=== PATIENT | female | born 1960 | race Caucasian/White ===

== ENCOUNTER 2018-06-10 10:57 | Emergency (ER) | payer OTHER ==
[2018-06-10 11:04] VITALS: BP 157/103
[2018-06-10] MEDS ORDERED: Ondansetron ODT TAB* 4 MG PO ONE (11:08)
[2018-06-10] MEDS ORDERED: HYDROcodone/ACETAMIN 5-325 MG* 1 TAB PO ONE (11:26)
--- NOTE | 2018-06-10 11:30 | UC ---
Complaint Female HPI - HPI Summary HPI Summary: Patient has a history of kidney stones and follows with urology in [place] - Dr. Moralez. Last had US in February of this year and was advised she had no stones at that time. Left flank pain started this morning and has gotten progressively worse. Pain is so severe it makes her vomit. No urinary symptoms. No fever. - History Of Current Complaint Chief Complaint: UCBackPain Stated Complaint: BACK PAIN,VOMITING Time Seen by Provider: 06/10/18 10:59 Hx Obtained From: Patient Onset/Duration: Gradual Onset, Lasting Hours, Still Present Timing: Constant Severity Initially: Moderate Severity Currently: Severe Pain Intensity: 8 Pain Scale Used: 0-10 Numeric Character: Sharp Aggravating Factor(s): Nothing Alleviating Factor(s): Nothing Associated Signs And Symptoms: Positive: Back Pain. Negative: Fever, Nausea - Allergies/Home Medications Allergies/Adverse Reactions: Allergies Allergy/AdvReac Type Severity Reaction Status Date / Time iodine Allergy See Comment Verified 06/10/18 11:05 Home Medications: Home Medications Ibuprofen 800 mg PO 06/10/18 [History] PMH/Surg Hx/FS Hx/Imm Hx GI/ History: Kidney Stones - Surgical History Surgical History: Yes Surgery Procedure, Year, and Place: c section - Family History Known Family History: Positive: Hypertension - Social History Alcohol Use: None Substance Use Type: None Smoking Status (MU): Never Smoked Tobacco Review of Systems Constitutional: Negative Respiratory: Negative Cardiovascular: Negative Gastrointestinal: Abdominal Pain, Vomiting, Other - FLANK PAIN All Other Systems Reviewed And Are Negative: Yes Physical Exam Triage Information Reviewed: Yes Appearance: Well-Nourished, Pain Distress - SEVERE. IN TEARS, VOMITING Vital Signs: Initial Vital Signs Temp 98.6 F 06/10/18 11:00 Pulse 84 06/10/18 11:00 Resp 18 06/10/18 11:00 BP 157/103 06/10/18 11:00 Pulse Ox 96 06/10/18 11:00 Vital Signs Reviewed: Yes Eyes: Positive: Conjunctiva Clear ENT: Positive: Hearing grossly normal Neck: Positive: Supple Respiratory: Positive: No respiratory distress, No accessory muscle use Cardiovascular: Positive: Pulses Normal Abdomen Description: Positive: Nontender, Soft. Negative: CVA Tenderness (R), CVA Tenderness (L), Distended, Guarding Musculoskeletal: Positive: No Edema Neurological: Positive: Alert Psychological: Positive: Age Appropriate Behavior Skin: Negative: rashes Diagnostics - Radiology CT ABD/PELVIS W/O CONTRAST Xray Interpretation: Positive (See Comments) - 1. Nephrolithiasis with moderately severe LEFT hydronephrosis is traced to a 7 mm stone at the ureteropelvic junction. 2. Hepatosteatosis and cholelithiasis. Radiology Interpretation Completed By: Radiologist Re-Evaluation - Re-Evaluation First Eval Re-Evaluation Time: 12:15 - PAIN CONTINUES TO WORSEN DESPITE HYDROCODONE AND ZOFRAN. PT DID NOT TOLERATE MORPHINE - VOMITING. TO [facility] Change: Worse Complaint Female Dx - Differential Dx/Diagnosis Provider Diagnoses: LEFT SIDED KIDNEY STONES, HYDRONEPHROSIS - Physician Notifications Discussed Patient Care With: Armaan Jensen - TO [facility] Time Discussed With Above Provider: 12:25 Instructed by Provider To: MD Will See In ED Discharge - Sign-Out/Discharge Documenting (check all that apply): Patient Departure All imaging exams completed and their final reports reviewed: Yes - Discharge Plan Condition: Stable Disposition: TRANS HIGHER LVL OF CARE FAC Referrals: Vivian Meléndez MD [Primary Care Provider] - - Billing Disposition and Condition Condition: STABLE Disposition: Trans Higher Lvl of Care Fac
--- NOTE | 2018-06-10 12:00 | RAD ---
INDICATION: LEFT flank pain. Hematuria. History of nephrolithiasis. COMPARISON: No relevant prior exams available on the [facility] [place]. TECHNIQUE: Multidetector CT images were obtained from the lung bases to the ischial tuberosities. No oral contrast administered. Assessment of the visceral limited without IV contrast. Multiplanar reformation. REPORT: VISUALIZED INFERIOR THORAX: Mild LEFT greater than RIGHT basilar atelectasis. LIVER / GALLBLADDER / PANCREAS / SPLEEN: Decreased density of the liver consistent with fatty infiltration with focal sparing adjacent to the gallbladder fossa. Approximate 4 small sharply circumscribed water density cysts of the liver are noted without concern. Calcified stones within the gallbladder without additional CT abnormality of the gallbladder. Negative for biliary dilatation. Moderately atrophic pancreas without suspicious CT finding. Unremarkable spleen. ALIMENTARY TRACT: Negative for CT abnormality of the upper GI, small bowel, or retrocecal appendix. A few colonic diverticula are noted. No evidence for acute diverticulitis. Negative for ascites or free air. Small fat-containing umbilical hernia without inflammatory change. MESENTERIC: Unremarkable. ADRENAL / GENITOURINARY: Normal adrenal glands. 2 mm nonobstructing calyceal stone lower pole RIGHT kidney. Unremarkable nondilated RIGHT ureter. Moderately severe LEFT hydronephrosis is traced to a 7 mm stone at the ureteropelvic junction. Additional punctate stone at a LEFT upper pole calyx. Nondilated LEFT ureter without additional stones. Mild LEFT perinephric and peripelvic inflammatory stranding. Decompressed urinary bladder limiting assessment without gross abnormality. Unremarkable anteverted uterus and adnexal regions. RETROPERITONEAL: Negative for lymphadenopathy. VASCULAR: Normal diameter abdominal aorta with mild calcific plaque. Physiologic partial distention of the IVC. BONES: Negative for suspicious osseous lesions. SOFT TISSUE: Unremarkable. IMPRESSION: #. Nephrolithiasis with moderately severe LEFT hydronephrosis is traced to a 7 mm stone at the ureteropelvic junction. #. Hepatosteatosis and cholelithiasis.
[2018-06-10] MEDS ORDERED: Morphine VIAL* 10 MG/ML 1 ML VIAL IV ONE (12:11)
== END 2018-06-10 12:40 | disposition short-term general hospital (02) ==
LOC: UCEAST 10:57
DX: N13.2 Hydronephrosis with renal and ureteral calculous obstruction (principal); K80.20 Calculus of gallbladder without cholecystitis without obstruction; K76.0 Fatty (change of) liver, not elsewhere classified; Z87.442 Personal history of urinary calculi
CPT/HCPCS: 74176; 81003; 87086; 99213; A9270-GY; G0463; J2270

== ENCOUNTER 2018-06-10 12:50 | Day surgery (SDC) | payer OTHER ==
[2018-06-10] MEDS ORDERED: Morphine INJ* 4 MG/ML 1 ML SYRINGE (NEW SYRINGE VERSION) IV ONE (13:16)
[2018-06-10] MEDS ORDERED: Ondansetron INJ* 2 MG/ML VIAL IV ONE (13:16)
[2018-06-10] MEDS ORDERED: Ketorolac INJ* 30 MG/ML 1 ML VIAL IV PUSH ONE (13:16)
[2018-06-10] MEDS ORDERED: NS 0.9% 1000 ML* 1,000 ML IV ONE (13:19)
[2018-06-10 13:46] LABS: ABS Basophils 0 10^3/ul (0-0.2); ABS Eosinophils 0 10^3/ul (0-0.6); ABS Lymphocytes 0.7 10^3/ul (1.0-4.8); ABS Monocytes 0.4 10^3/ul (0-0.8); ABS Neutrophils 9.5 10^3/ul (1.5-7.7); ABS Nucleated RBC 0 10^3/ul; Eosinophil % 0.2 % (0-6); Hematocrit 42 % (35-47); Hemoglobin 14.1 g/dl (12.0-16.0); Lymphocyte % 6.9 % (25-47); Mean Corpuscular HGB Conc 34 g/dl (31-36); Mean Corpuscular Hemoglobin 31 pg (27-31); Mean Corpuscular Volume 91 fL (80-97); Mean Platelet Volume 8.1 um3 (7.4-10.4); Nucleated Red Blood Cells % 0; Platelet Count 223 10^3/ul (150-450); Red Cell Distribution Width 13 % (10.5-15); White Blood Count 10.7 10^3/ul (3.5-10.8)
[2018-06-10 14:00] LABS: EGFR Non-African American 52.3 (>60)
[2018-06-10] MEDS ORDERED: Lidocaine 2% PF * 5 ML VIAL ONE (14:49)
[2018-06-10] MEDS ORDERED: Propofol* 10 MG/ML 20 ML BTL IV PUSH ONE (14:49)
[2018-06-10] MEDS ORDERED: Midazolam* 1 MG/ML 2 ML VIAL (2 MG) ONE (14:49)
[2018-06-10] MEDS ORDERED: fentaNYL* 50 MCG/ML 2 ML VIAL (100 MCG VIAL) ONE (14:49)
[2018-06-10] MEDS ORDERED: Succinylcholine* 20 MG/ML 10 ML VIAL ONE (14:49)
[2018-06-10] MEDS ORDERED: Ondansetron INJ* 2 MG/ML VIAL ONE ×2 (14:56→17:13)
[2018-06-10] MEDS ORDERED: Dexamethasone IV* 4 MG/ML 1 ML (4 MG) ONE ×2 (14:56→17:13)
[2018-06-10] MEDS ORDERED: Buffered Lidocaine 0.9% SYRIN* 5 ML/SYR SYRINGE INTRADERM ONE (15:03)
--- NOTE | 2018-06-10 15:13 | ED ---
Back Pain - HPI Summary HPI Summary: Pt. is a 58-year-old female who was referred to the ER from [facility] for a obstructing left kidney stone. Patient has no past medical history other than kidney stones. She has seen urology in [place] in the past and has had stents and lithotripsy. Patient states she's been doing well over the last year until today when she developed acute pain to left flank. Associated symptoms of nausea and vomiting. Denies fever or chills. Patient had CAT scan done at [facility] that showed a 7 mm calculus at the UPJ with moderate to severe [place]. Symptoms are moderate in severity. No current modifying factors. - History of Current Complaint Chief Complaint: EDFlankPain Stated Complaint: FLANK PAIN Time Seen by Provider: 06/10/18 13:12 Hx Obtained From: Patient Pain Intensity: 6 - Allergies/Home Medications Allergies/Adverse Reactions: Allergies Allergy/AdvReac Type Severity Reaction Status Date / Time iodine Allergy See Comment Verified 06/10/18 11:05 Home Medications: Home Medications Ascorbic Acid TAB* [Vitamin C TAB*] 500 mg PO DAILY 06/10/18 [History Confirmed 06/10/18] [place]-3/Dha/Epa/Fish Oil [[place] 3 500 500 mg] 1 cap PO DAILY 06/10/18 [History Confirmed 06/10/18] PMH/Surg Hx/FS Hx/Imm Hx Previously Healthy: Yes - Cancer History Hx Chemotherapy: No Hx Radiation Therapy: No - Surgical History Surgery Procedure, Year, and Place: c section Infectious Disease History: No Infectious Disease History: Denies: History Other Infectious Disease, Traveled Outside the in Last 30 Days - Family History Known Family History: Positive: Hypertension - Social History Occupation: Employed Full-time Lives: With Family Alcohol Use: None Substance Use Type: Reports: None Smoking Status (MU): Never Smoked Tobacco Review of Systems Constitutional: Negative Negative: Fever, Chills Respiratory: Negative Gastrointestinal: Negative Positive: flank pain. Negative: hematuria All Other Systems Reviewed And Are Negative: Yes Physical Exam Triage Information Reviewed: Yes Vital Signs On Initial Exam: Initial Vitals Temp Pulse Resp BP Pulse Ox 98.3 F 74 17 152/78 97 06/10/18 12:56 06/10/18 12:56 06/10/18 12:56 06/10/18 12:56 06/10/18 12:56 Vital Signs Reviewed: Yes Appearance: Positive: Well-Appearing - Pt. sitting on bed in NAD. Skin: Positive: Warm, Dry Head/Face: Positive: Normal Head/Face Inspection Eyes: Positive: Normal, EOMI Neck: Positive: Supple Respiratory/Lung Sounds: Positive: Clear to Auscultation, Breath Sounds Present Cardiovascular: Positive: Normal, RRR Abdomen Description: Positive: Nontender, Soft, CVA Tenderness (L) Neurological: Positive: Normal, CN Intact II-III Psychiatric: Positive: Affect/Mood Appropriate Diagnostics - Vital Signs Vital Signs Temp Pulse Resp BP Pulse Ox 06/10/18 15:00 68 98 06/10/18 14:56 74 146/67 98 06/10/18 14:26 68 146/78 98 06/10/18 14:00 71 97 06/10/18 13:56 70 146/77 97 06/10/18 12:56 98.3 F 74 17 152/78 97 - Laboratory Lab Results: Lab Results 06/10/18 06/10/18 Range/Units 13:34 13:34 WBC 10.7 (3.5-10.8) 10^3/ul RBC 4.60 (4.00-5.40) 10^6/ul Hgb 14.1 (12.0-16.0) g/dl Hct 42 (35-47) % MCV 91 (80-97) fL MCH 31 (27-31) pg MCHC 34 (31-36) g/dl RDW 13 (10.5-15) % Plt Count 223 (150-450) 10^3/ul MPV 8.1 (7.4-10.4) um3 Neut % (Auto) 88.5 H (38-83) % Lymph % (Auto) 6.9 L (25-47) % Hardy % (Auto) 4.1 (0-7) % Eos % (Auto) 0.2 (0-6) % Baso % (Auto) 0.3 (0-2) % Absolute Neuts (auto) 9.5 H (1.5-7.7) 10^3/ul Absolute Lymphs (auto) 0.7 L (1.0-4.8) 10^3/ul Absolute Monos (auto) 0.4 (0-0.8) 10^3/ul Absolute Eos (auto) 0 (0-0.6) 10^3/ul Absolute Basos (auto) 0 (0-0.2) 10^3/ul Absolute Nucleated RBC 0 10^3/ul Nucleated RBC % 0 Sodium 139 (135-145) mmol/L Potassium 4.6 (3.5-5.0) mmol/L Chloride 105 (101-111) mmol/L Carbon Dioxide 28 (22-32) mmol/L Anion Gap 6 (2-11) mmol/L BUN 24 (6-24) mg/dL Creatinine 1.08 H (0.51-0.95) mg/dL Est GFR ( Amer) 63.3 (>60) Est GFR (Non-Af Amer) 52.3 (>60) BUN/Creatinine Ratio 22.2 H (8-20) Glucose 133 H (70-100) mg/dL Calcium 9.5 (8.6-10.3) mg/dL Total Bilirubin 0.40 (0.2-1.0) mg/dL AST 22 (13-39) U/L ALT 28 (7-52) U/L Alkaline Phosphatase 63 (34-104) U/L Total Protein 6.9 (6.4-8.9) g/dL Albumin 4.5 (3.2-5.2) g/dL Globulin 2.4 (2-4) g/dL Albumin/Globulin Ratio 1.9 (1-3) Result Diagrams: 06/10/18 13:34 06/10/18 13:34 Lab Statement: Any lab studies that have been ordered have been reviewed, and results considered in the medical decision making process. Back Pain Course/Dx - Course Course Of Treatment: Pt. presenting with severe left hydronephrosis secondary to a large proximal calculus. She is afebrile with stable vital signs. Labs ordered. I spoke with Dr. Anderson who generously agrees to place sent today. Pt. eventually transferred to preop. - Diagnoses Differential Diagnosis/HQI/PQRI: Positive: Renal Colic Provider Diagnoses: Hydronephrosis, Urolithiasis Discharge - Sign-Out/Discharge Documenting (check all that apply): Patient Departure - Discharge Plan Condition: Stable Disposition: ADMITTED TO [facility] Referrals: Vivian Meléndez MD [Primary Care Provider] - - Billing Disposition and Condition Condition: STABLE Disposition: Admitted to [facility]
[2018-06-10] MEDS ORDERED: cefTRIAXone(*) 2 GM ADDV.VIAL IVPB ONE (15:31)
[2018-06-10] MEDS ORDERED: Iohexol 180 (CONTRAST) 10 ML SDV IV ONE (15:51)
[2018-06-10] MEDS ORDERED: Gentamicin ADULT (*) 160 MG in NS 0.9% 100 ML* 100 ML IVPB ONE (16:00)
[2018-06-10] MEDS ORDERED: Buffered Lidocaine 0.9% SYRIN* 5 ML/SYR SYRINGE ONE (16:03)
[2018-06-10] MEDS ORDERED: Metoclopramide IV* 5 MG/ML 2 ML VIAL ONE (17:13)
--- NOTE | 2018-06-10 17:45 | RAD ---
CPT II Codes: G9500 INDICATION: Placement of left ureteral stent TECHNIQUE: Intraoperative fluoroscopy was provided during left ureteral stent placement. FINDINGS: 3 spot films depict retrograde pyelography demonstrating a mild degree of hydronephrosis followed by anatomic placement of a left ureteral stent. Fluoroscopy time: 8 seconds IMPRESSION: As above.
[2018-06-10] MEDS ORDERED: Levofloxacin TAB* 500 MG PO ONE (18:00)
[2018-06-10 18:59] VITALS: BP 144/71
--- NOTE | 2018-06-10 19:03 | HP ---
CC: Dr. Vivian Meléndez; Dr. Joseph.* ADMITTING HISTORY AND PHYSICAL: DATE OF ADMISSION: 06/10/18 ADMITTING DIAGNOSES: 1. Obstructing calculus, left ureteropelvic junction. 2. Left hydronephrosis. PLANNED PROCEDURE: Left ureteral stent insertion (to be followed in near future by shock wave lithotripsy). SURGEON: Dr. Joseph. HISTORY OF PRESENT ILLNESS: Anabelle Johns is a 58-year-old lady with a history of recurrent renal calculi. She had presented to the emergency room with left flank pain, nausea, and vomiting and was noted to have a 7 to 8 mm obstructing calculus at the left ureteropelvic junction. She was transferred from the [facility] to the emergency room because of the severity of the pain and is now being brought in for left stent insertion to be followed in the near future by lithotripsy. PAST MEDICAL HISTORY: Significant for renal calculi. PAST SURGICAL HISTORY: Significant for: 1. Left stent insertion and lithotripsy in 2017. 2. . 3. Laparoscopy for ovarian cyst. MEDICATIONS ON ADMISSION: None. ALLERGIES: No known drug allergies. SMOKING HISTORY: She is a nonsmoker. REVIEW OF SYSTEMS: She is otherwise in excellent health. There is no history of diabetes mellitus or any other major systemic illness. PHYSICAL EXAMINATION GENERAL: Reveals a pleasant, uncomfortable-appearing middle-aged lady. VITAL SIGNS: Blood pressure is 156/85, pulse 71 per minute, regular, oxygen saturation 97% on room air, respiratory rate 16 per minute, temperature 36.5. LUNGS: Clear bilaterally. CARDIOVASCULAR EXAM: Regular rate and rhythm. S1, S2. ABDOMEN: Soft with left flank tenderness. LABORATORY DATA: I have reviewed the labs, which reveals a white count of 10.7 , hemoglobin and hematocrit is 14.1 and 42 with a platelet count of 223. Review of electrolytes revealed sodium of 139, potassium of 4.6, BUN and creatinine are 24 and 1.08. Serum calcium is 9.5. Urinalysis is not available at the time of this dictation. IMAGING: I also reviewed the CT scan and had a detailed discussion with the patient. PLAN: Plan is for urgent left stent insertion (to be followed in near future by lithotripsy). [id number]/[facility] #: [id number] [facility]
[2018-06-10 19:41] LABS: Urine Appearance Cloudy; Urine Blood 3+ (Negative); Urine Color Yellow; Urine Ketones Negative (Negative); Urine Protein Negative (Negative); Urine Red Blood Cell 3+(>10/hpf) (Absent); Urine Specific Gravity 1.009 (1.010-1.030); Urine Urobilinogen Negative (Negative); Urine White Blood Cell 1+(6-10/hpf) (Absent)
--- NOTE | 2018-06-11 07:01 | OP ---
CC: Dr. Vivian Meléndez * DATE OF OPERATION: 06/10/18 - [facility] DATE OF : 62 SURGEON: Dr. Martin Joseph. ANESTHESIOLOGIST: Dr. Mancia. ANESTHESIA: General. PRE-OP DIAGNOSES: 1. Left hydronephrosis. 2. Obstructing calculus, left ureteropelvic junction. POST-OP DIAGNOSES: 1. Left hydronephrosis. 2. Obstructing calculus, left ureteropelvic junction. OPERATIVE PROCEDURE: Cystoscopy, left retrograde pyelogram, left ureteral calculus manipulation, and left stent insertion. COMPLICATIONS: None. STENT USED: A 7-Latvian stent, left ureter. POSTOPERATIVE CONDITION: Stable. INDICATIONS: Anabelle Tilley is a 58-year-old lady who was urgently evaluated for an obstructing left ureteropelvic junction calculus and is being brought in for urgent left stent insertion, to be followed in the near future by lithotripsy. DESCRIPTION OF PROCEDURE: After induction of general anesthesia, the patient was placed in dorsal lithotomy position. Sequential compression devices were in place and functioning. Initial cystoscopy revealed a normal-appearing bladder with mild chronic inflammatory changes noted, but there was no evidence of any suspicious bladder lesions noted. A guidewire was introduced into the left ureter. Retrograde pyelogram revealed fullness of the left collecting system and the radiopaque calculus could be noted at the ureteropelvic junction. This was carefully manipulated into a more proximal position, and a 7 -Latvian stent was then introduced and positioned under fluoroscopy with good proximal and distal positioning obtained. Bladder was emptied. The patient tolerated the procedure satisfactorily and was transferred back to recovery area in stable condition. [id number]/[facility] #: [id number] [facility]
--- NOTE | 2018-06-11 08:05 | RAD ---
Indication: Stent placement. Single view of the abdomen demonstrates left ureteral stent in place. Colon is filled with stool. No dilated loops of bowel are noted. IMPRESSION: Left ureteral stent is in place. R1
== END 2018-06-10 19:33 | disposition home or self-care (01) ==
LOC: ED 12:50 → UNDOADMIN 12:57 → MED 12:57 → OR 16:07
PROVIDERS: ATTEND Urology
DX: N13.2 Hydronephrosis with renal and ureteral calculous obstruction (principal); R10.32 Left lower quadrant pain; R39.89 Other symptoms and signs involving the genitourinary system; R11.2 Nausea with vomiting, unspecified
CPT/HCPCS: 36415; 74018; 74420; 80053; 81003; 81015; 85025; 87086; 96374; 96375; 99284; C1876; J0330; J0696; J1100; J1580; J1885; J2250; J2270; J2405; J2704; J2765; J3010

== ENCOUNTER 2018-06-20 10:31 | Day surgery (SDC) | payer OTHER ==
[~2018-06-20 10:31] MED LIST: Buffered Lidocaine 0.9% SYRIN* 5 ML/SYR SYRINGE INTRADERM ONE; Sodium Citrate/Citric Acid* 15 ML UDC PO ONE
[2018-06-20] MEDS ORDERED: Sodium Citrate/Citric Acid* 15 ML UDC ONE (11:26)
[2018-06-20] MEDS ORDERED: cefTRIAXone(*) 2 GM ADDV.VIAL IVPB ONE (11:26)
[2018-06-20] MEDS ORDERED: Buffered Lidocaine 0.9% SYRIN* 5 ML/SYR SYRINGE ONE (11:52)
--- NOTE | 2018-06-20 12:17 | RAD ---
Indication: Shock wave lithotripsy. Single view of the abdomen demonstrates left ureteral stent in place. There may be tiny calcifications in the left renal hilus. Psoas margins are intact. IMPRESSION: Left ureteral stent in place. Findings are similar to that seen on June 13, 2018.
[2018-06-20] MEDS ORDERED: Lidocaine 2% PF * 5 ML VIAL ONE (14:22)
[2018-06-20] MEDS ORDERED: Propofol* 10 MG/ML 20 ML BTL IV PUSH ONE (14:22)
[2018-06-20] MEDS ORDERED: Furosemide IV* 10 MG/ML 2 ML VIAL (20 MG) ONE (14:49)
[2018-06-20] MEDS ORDERED: Naloxone* 0.4 MG/ML 1 ML VIAL IV PRN (14:59)
[2018-06-20 16:06] VITALS: BP 155/80
--- NOTE | 2018-06-21 06:37 | OP ---
CC: Dr. Vivian Meléndez * DATE OF OPERATION: 06/20/18 - [facility] DATE OF : 62 SURGEON: Martin Joseph MD ANESTHESIOLOGIST: Blake Grace DO ANESTHESIA: General. PRE-OP DIAGNOSIS: Left renal calculus. POST-OP DIAGNOSIS: Left renal calculus. OPERATIVE PROCEDURE: Shock wave lithotripsy of left renal calculus. INDICATIONS: Anabelle Johns is a 58-year-old lady, who had undergone urgent left stent insertion for an obstructing left ureteropelvic junction calculus. She is now being brought in for lithotripsy. COMPLICATIONS: None. POSTOPERATIVE CONDITION: Stable. DESCRIPTION OF PROCEDURE: After induction of general anesthesia, the patient was placed on the lithotripsy table in supine position. The calculus which was adjacent to the proximal coil of the stent was localized using fluoroscopy. Shock wave lithotripsy was commenced at a rate of 60 shocks per minute. After the initial 300 shocks, there was a pause in lithotripsy for several minutes in an effort to minimize any potential trauma to the kidney. Lithotripsy was then resumed and periodic imaging revealed good localization and fragmentation. A total of 1800 shocks were delivered. The patient tolerated the procedure satisfactorily and was transferred back to the recovery area in stable condition. [id number]/[facility] #: [id number] [facility]
== END 2018-06-20 16:29 | disposition home or self-care (01) ==
LOC: OR 10:31
PROVIDERS: ATTEND Urology
DX: N20.0 Calculus of kidney (principal); Z87.442 Personal history of urinary calculi; Z86.32 Personal history of gestational diabetes; I34.1 Nonrheumatic mitral (valve) prolapse; Z68.31 Body mass index [BMI] 31.0-31.9, adult
CPT/HCPCS: 74018; A9270-GY; J0696; J1940; J2704

== ENCOUNTER 2019-09-12 09:05 | Emergency (ER) | payer OTHER ==
[2019-09-12 09:25] VITALS: BP 134/68
--- NOTE | 2019-09-12 11:03 | UC ---
Head Injury HPI - HPI Summary HPI Summary: The patient is a 59-year-old female that tripped on her dog and hit her right forehead yesterday evening. She has had a mild headache which she rates about 3 out of 10. She denies any loss of consciousness. She has had no photo or phonophobia. She denies any neck pain. She states she has not been confused or had any trouble focusing. She has no gait problems. She states that when she awoke today she had a right black eye. She states that she felt she needed to clear her nasal passages this morning and she has mild left otalgia. She has noted some mild decreased hearing. She denies any nasal discharge or otorrhea. - History Of Current Complaint Chief Complaint: UCHeadInjury Stated Complaint: HEAD INJURY Time Seen by Provider: 09/12/19 09:37 Hx Obtained From: Patient Onset/Duration: Sudden Onset Severity Currently: Moderate Severity Initially: Mild Pain Intensity: 3 Pain Scale Used: 0-10 Numeric Character: Dull Aggravating Factor(s): Nothing Alleviating Factor(s): Nothing Associated Signs And Symptoms: Negative: LOC (Time In Secs./Mins/Hrs), Confusion , Memory Loss, Seizure, Epistaxis, Dental Malocclusion, Neck Pain, Nausea, Vomiting Head: 1 - hematoma (mild) 2 - ecchymosis 3 - tender superior orbital rim - Allergies/Home Medications Allergies/Adverse Reactions: Allergies Allergy/AdvReac Type Severity Reaction Status Date / Time iodine Allergy Intermediate HIVES, Verified 09/12/19 09:25 THROWS UP PMH/Surg Hx/FS Hx/Imm Hx Previously Healthy: Yes - Surgical History Surgical History: Yes Surgery Procedure, Year, and Place: c section. laparoscopy cyst removed from ovary. tonsillectomy whn in high school. 2 kidney stone procedures 18 months ago at [facility]. 06/10/2018 stent placed and kidney ston surgery - Family History Known Family History: Positive: Hypertension, Non-Contributory - Social History Alcohol Use: None Substance Use Type: None Smoking Status (MU): Never Smoked Tobacco Review of Systems All Other Systems Reviewed And Are Negative: Yes Constitutional: Positive: Negative Skin: Positive: Bruising Eyes: Positive: Negative ENT: Positive: Ear Ache - L Respiratory: Positive: Negative Cardiovascular: Positive: Negative Gastrointestinal: Positive: Negative Genitourinary: Positive: Negative Motor: Positive: Negative Neurovascular: Positive: Negative Musculoskeletal: Positive: Negative Neurological: Positive: Headache - 11/06 Psychological: Positive: Negative Physical Exam Triage Information Reviewed: Yes Appearance: Well-Appearing, No Pain Distress, Well-Nourished Vital Signs: Initial Vital Signs Temp 97.6 F 09/12/19 09:20 Pulse 63 09/12/19 09:20 Resp 20 09/12/19 09:20 BP 134/68 09/12/19 09:20 Pulse Ox 98 09/12/19 09:20 Vital Signs Reviewed: Yes Eyes: Positive: Conjunctiva Clear, Other: - EOMI/PERRL ENT: Positive: Pharynx normal, Nasal congestion, Uvula midline. Negative: Hearing grossly normal - sl decrease hearing left, Nasal drainage, TMs normal - left TM retracted, Tonsillar swelling, Tonsillar exudate, Trismus, Muffled voice , Hoarse voice, Sinus tenderness Dental Exam: Normal Neck: Positive: Supple, Nontender, No Lymphadenopathy Respiratory: Positive: Lungs clear, Normal breath sounds, No respiratory distress, No accessory muscle use Cardiovascular: Positive: RRR, No Murmur Musculoskeletal: Positive: No Edema Neurological: Positive: Alert, Other: - GCS 15/15, cn 2-12 intact, strength 5/5 , normal gait, neg [place] Psychological Exam: Normal Skin Exam: Other - see image Diagnostics - Radiology No standard instances Radiology Interpretation Completed By: Radiologist Summary of Radiographic Findings: CT brain and face- neg for intracranial injury or fx Head Injury Course/Dx - Differential Dx/Diagnosis Provider Diagnosis: Closed head injury, Forehead contusion Discharge ED - Sign-Out/Discharge Documenting (check all that apply): Patient Departure All imaging exams completed and their final reports reviewed: Yes - Discharge Plan Condition: Stable Disposition: HOME Patient Education Materials: Head Injury (ED) Referrals: Vivian Meléndez MD [Primary Care Provider] - 1 Week (recheck in 1-2 weeks) Additional Instructions: rest ice tyenol black eye will probably worsen and last 2 weeks recheck if ear pain worsens or persists greater than 2 weeks - Billing Disposition and Condition Condition: STABLE Disposition: Home
== END 2019-09-12 11:06 | disposition home or self-care (01) ==
LOC: UCEAST 09:05
DX: S09.90XA Unspecified injury of head, initial encounter (principal); S00.83XA Contusion of other part of head, initial encounter; W01.0XXA Fall on same level from slipping, tripping and stumbling without subsequent striking against object, initial encounter; Y92.9 Unspecified place or not applicable; Z91.09 Other allergy status, other than to drugs and biological substances
CPT/HCPCS: 70450; 70486; 99211; G0463